=== PATIENT | female | born 1985 | race Caucasian/White ===

== ENCOUNTER 2021-10-02 02:31 | Emergency (ER) | payer OTHER, SELFPAY ==
[2021-10-02 02:42] VITALS: BP 116/70; PULSE 78; RESP 20; TEMP 36.6; O2SAT 100; BMI 19.1
--- NOTE | 2021-10-02 03:33 | ED.GENADULT ---
HPI - General Adult General Chief complaint: General Medical Stated complaint: Anxiety? Time Seen by Provider: 10/02/21 03:33 Source: patient and family Mode of arrival: ambulatory Limitations: no limitations History of Present Illness HPI narrative: Patient history of IVDA cocaine and heroin been using for some sometime comes here with multiple complaints saying that her blood is dark leg swollen be weird taste in the mouth feel like she was going to . Saturating 100% at room air supposed to see detox in the morning for intake at this time patient not able to tell what is her major reason to come to the hospital no fever no chills no cough Related Data Allergies Allergy/AdvReac Type Severity Reaction Status Date / Time No Known Allergies Allergy Verified 10/02/21 03:42 Review of Systems Review of Systems: Yes all other systems are reviewed and are negative [facility] Social History Social History Advance Directives: No Advance Directives Information Provided: No Physical Exam Vital Signs: Vital Signs: Last Vital Signs Temp 97.9 F 10/02/21 02:42 Pulse 78 10/02/21 02:42 Resp 20 10/02/21 02:42 BP 116/70 10/02/21 02:42 Pulse Ox 100 10/02/21 02:42 BMI result Body Mass Index 19.1 Appearance: Alert. Oriented X3. No acute distress. Frequently falling sleep Eyes: PERRLA, no pallor icterus ENT: Pharynx normal. Oral Mucosa moist triple facial lesions of cocaine use Neck: Normal inspection. Neck supple. CVS: Normal heart rate and rhythm. Pulses normal. Respiratory: No respiratory distress. Equal air entry bilateral, no wheezing/rales/rhonchi Abdomen: Soft and nontender. Skin: Skin warm and dry. Normal skin color. Normal skin turgor. Extremities: 1+ lower extremity edema. No calf tenderness IVDA track méndez in both upper extremities Neuro: Oriented X 3. Medical Decision Making MDM Narrative Medical decision making narrative: Patient's substance abuse multiple complaints left the ED without report of the urine states she will follow with PCP Lab Data Labs: Lab Results 10/02/21 10/02/21 10/02/21 Range/Units 04:03 Unknown Unknown Urine Color YELLOW Urine Appearance HAZY Urine pH 7.0 (5.0-8.0) Ur Specific [place] 1.020 (1.005-1.025) Urine Protein NEG (NEG-TRACE) MG/DL Urine Glucose (UA) NEG (NEG) MG/DL Urine Ketones NEG (NEG) MG/DL Urine Blood NEG (NEG) Urine Nitrite NEG (NEG) Ur Leukocyte Esterase 2+ H (NEG) Urine RBC 5-9 H (0) /HPF Urine WBC 30-49 H (0-4) /HPF Ur Squamous Epith Cells 1+ /LPF Urine Bacteria 2+ /LPF Urine Mucus 2+ /LPF Urine Test NEGATIVE (NEGATIVE) Urine Opiates Screen (Not Detect) Urine Fentanyl Screen (Not Detect) Ur Barbiturates Screen (Not Detect) Ur Phencyclidine Scrn (Not Detect) Ur Amphetamines Screen (Not Detect) U Benzodiazepines Scrn (Not Detect) Urine Cocaine Screen (Not Detect) U Marijuana (THC) Screen (Not Detect) COVID-19 (ARLIN) Negative (Negative) COVID-VelociData See Note 10/02/21 Range/Units Unknown Urine Color Urine Appearance Urine pH (5.0-8.0) Ur Specific [place] (1.005-1.025) Urine Protein (NEG-TRACE) MG/DL Urine Glucose (UA) (NEG) MG/DL Urine Ketones (NEG) MG/DL Urine Blood (NEG) Urine Nitrite (NEG) Ur Leukocyte Esterase (NEG) Urine RBC (0) /HPF Urine WBC (0-4) /HPF Ur Squamous Epith Cells /LPF Urine Bacteria /LPF Urine Mucus /LPF Urine Test (NEGATIVE) Urine Opiates Screen POSITIVE H (Not Detect) Urine Fentanyl Screen POSITIVE H (Not Detect) Ur Barbiturates Screen Not Detected (Not Detect) Ur Phencyclidine Scrn Not Detected (Not Detect) Ur Amphetamines Screen Not Detected (Not Detect) U Benzodiazepines Scrn Not Detected (Not Detect) Urine Cocaine Screen POSITIVE H (Not Detect) U Marijuana (THC) Screen Not Detected (Not Detect) COVID-19 (ARLIN) (Negative) COVID-VelociData Discharge Plan Discharge Clinical Impression: Polysubstance abuse Patient Disposition: Home, Self-Care Instructions: Polysubstance Abuse (ED) Additional Instructions: Follow up with detox in the morning as planned Interventions: ED Discharge Assessment Last Done: 10/02/21 05:17 Discharge Date/Time: 10/02/21 05:17
[2021-10-02 04:31] LABS: COVID-19 Test Negative (Negative); IDNOW Serial# 55D5AD1C
[2021-10-02 05:26] LABS: Appearance Urine HAZY; Color Urine YELLOW; Glucose Urine UA NEG (NEG); Leukocyte Esterase Urine 2+ (NEG); Nitrite Urine NEG (NEG); UACC Culture Trigger YES; Urine Blood NEG (NEG); Urine Ketones NEG (NEG); Urine Protein NEG (NEG-TRACE)
[2021-10-02 05:28] LABS: UPreg QC Valid YES; Urine Pregnancy NEGATIVE (NEGATIVE)
[2021-10-02 05:35] LABS: WBC Urine 30-49 /HPF (0-4)
[2021-10-02 05:36] LABS: Amphetamine Screen Urine Not Detected (Not Detect); Bacteria Urine 2+ /LPF; Barbiturates, Urine Not Detected (Not Detect); Benzodiazepines Screen Urine Not Detected (Not Detect); Cannabinoid Screen Urine Not Detected (Not Detect); Cocaine Screen Urine POSITIVE (Not Detect); Fentanyl, urine POSITIVE (Not Detect); Mucus Urine 2+ /LPF; Opiate Screen Urine POSITIVE (Not Detect); Phencyclidine Screen Urine Not Detected (Not Detect); Squamous Epithelial Cell Urine 1+ /LPF
== END 2021-10-02 05:17 | disposition home or self-care (01) ==
PROVIDERS: Emergency Provider Internal Medicine
DX: F19.10 Other psychoactive substance abuse, uncomplicated (principal); Z20.822 Contact with and (suspected) exposure to COVID-19; F11.10 Opioid abuse, uncomplicated; F14.10 Cocaine abuse, uncomplicated
CPT/HCPCS: 36415; 80307; 81001; 81025; 87086; 87635; 99283

== ENCOUNTER 2022-11-05 12:16 | Emergency (ER) | payer OTHER, SELFPAY ==
--- NOTE | ~2022-11-05 | XR_ITS ---
EXAMINATION: XR FINGER, LEFT CLINICAL INFORMATION: Glass in the left middle finger. COMPARISON: None TECHNIQUE: 3 views of the left middle finger. FINDINGS: No radiopaque foreign body. The bones and soft tissues are normal. No fracture. Alignment is anatomic. Joint spaces are maintained. XR/XR finger LT min 2V IMPRESSION: Normal finger radiographs.
[2022-11-05 12:39] VITALS: BP 110/65; PULSE 82; RESP 16; TEMP 36.7; O2SAT 97; BMI 20.1
--- NOTE | 2022-11-05 12:40 | ED_ITS ---
HPI - General Adult General Chief complaint: General Medical <DOC Carbajal - Last Filed: 11/05/22 12:45> Stated complaint: STD test/Multiple complaints <DOC Carbajal - Last Filed: 11/05/22 12:45> Time Seen by Provider: 11/05/22 14:07 <DOC Carbajal - Last Filed: 11/05/22 12:45> Source: patient <DOC Taveras Last Filed: 11/05/22 16:37> Mode of arrival: ambulatory <DOC Taveras Last Filed: 11/05/22 16:37> Limitations: no limitations <DOC Taveras Last Filed: 11/05/22 16:37> History of Present Illness HPI narrative: Patient is a 37 year old assigned female at with a history of opiate use disorder presenting to the emergency department today with multiple complaints including pain with intercourse over the last week, glass possibly stuck in her left middle finger over the last 3 days, and rash all over her arms and her hands and her legs over the last 3 months. Patient states that the rash has been intermittent to her arms, hands, and legs over the last 3 months. Patient states that 3 days ago she thought she got glass in her finger but isn't sure anymore. Patient states that she has been having pain with intercourse over the last week as well. Patient states that she does not want any help with her opiate use. Patient denies any dizziness, lightheadedness, abdominal pain, nausea, vomiting, fever, chills, blurry vision, double vision, loss of vision, chest pain, difficulty breathing, shortness of breath, back pain, night sweats, pain with urination, increased urinary frequency, increased urinary urgency, blood in her urine or stool, syncope or a near syncopal episode, recent trauma or falls, bowel incontinence, bladder incontinence, bowel retention, bladder retention, or any other complaints at this time. <DOC Taveras Last Filed: 11/05/22 16:37> Relieving factors: none <DOC Taveras Last Filed: 11/05/22 16:37> Exacerbating factors: none <DOC Taveras Last Filed: 11/05/22 16:37> Treatments prior to arrival: none <DCO Taveras Last Filed: 11/05/22 16:37> Related Data Home medications: Previous Rx's Medication Instructions Recorded doxycycline hyclate 100 mg tablet 100 mg PO BID 7 days #14 tabs 11/05/22 metronidazole 500 mg tablet 500 mg PO BID 14 days #28 tabs 11/05/22 <DOC Carbajal Last Filed: 11/05/22 12:45> Allergies/adverse reactions: Allergies Allergy/AdvReac Type Severity Reaction Status Date / Time No Known Allergies Allergy Verified 11/05/22 12:44 <DOC Carbajal Last Filed: 11/05/22 12:45> Review of Systems Constitutional: Constitutional: Reports no additional constitutional complaints, Denies chills, Denies fever(s) and Denies night sweats <DOC Taveras Last Filed: 11/05/22 16:37> Eyes: Eyes: Reports no additional eye complaints, Denies blurry vision, Denies change in vision, Denies diplopia, Denies eye discharge, Denies loss of vision and Denies eye pain <DOC Taveras Last Filed: 11/05/22 16:37> ENT: Denies dizziness <DOC Taveras Last Filed: 11/05/22 16:37> Cardiovascular: Cardiovascular: Reports no additional cardiovascular complaints, Denies chest pain, Denies lightheadedness, Denies Loss of Consciousness and Denies dyspnea <DOC Taveras Last Filed: 11/05/22 16:37> Respiratory: Respiratory: Reports no additional respiratory complaints and Denies dyspnea <DOC Taveras Last Filed: 11/05/22 16:37> Gastrointestinal: Gastrointestinal: Reports no additional gastrointestinal complaints, Denies abdominal pain, Denies melena, Denies hematochezia, Denies change in bowel habits and Denies change in stool character <DOC Taveras Last Filed: 11/05/22 16:37> Genitourinary: Genitourinary: Denies hematuria, Denies urinary frequency, Denies dysuria, Denies urinary incontinence, Denies urinary hesitancy and Denies urinary urgency <DOC Taveras Last Filed: 11/05/22 16:37> Comments: pain with intercourse <DOC Taveras - Last Filed: 11/05/22 16:37> Musculoskeletal: Musculoskeletal: Reports no additional musculoskeletal co mplaints, Denies numbness and Denies tingling <DOC Taveras - Last Filed: 11/05/22 16:37> Integumentary/Breasts: Skin/Breast: Reports rash <DOC Taveras - Last Filed: 11/05/22 16:37> Neurologic: Denies dizziness, Denies loss of vision, Denies numbness and Denies tingling <DOC Taveras - Last Filed: 11/05/22 16:37> Psychiatric: Psychiatric: Reports no additional psychiatric complaints <DOC Taveras - Last Filed: 11/05/22 16:37> Endocrine: Endocrine: Reports no additional endocrine complaints <DOC Taveras - Last Filed: 11/05/22 16:37> Hematologic/Lymphatic: Hematologic/Lymphatic: Reports no additional hematologic/lymphatic complaints <DOC Taveras - Last Filed: 11/05/22 16:37> Allergic/Immunologic: Allergic/Immunologic: Reports no additional allergic/immunologic complaints <DOC Taveras - Last Filed: 11/05/22 16:37> [facility] Past Medical History Attestation statement: The following information was validated with the patient. <DOC Taveras - Last Filed: 11/05/22 16:37> Source: old records reviewed and nursing notes reviewed <DOC Taveras - Last Filed: 11/05/22 16:37> Social History Social History: Social History Advance Directives: No Advance Directives Information Provided: Yes <DOC Carbajal - Last Filed: 11/05/22 12:45> Physical Exam ED Vital Signs: Vital Signs - 24 hr 11/05/22 12:39 Temperature 98.1 F Pulse Rate 82 Respiratory Rate 16 Blood Pressure 110/65 Pulse Oximetry 97 Oxygen Delivery Method Room Air BMI result Body Mass Index 20.1 <DOC Carbajal - Last Filed: 11/05/22 12:45> Vital Signs - 24 hr 11/05/22 12:39 Temperature 98.1 F Pulse Rate 82 Respiratory Rate 16 Blood Pressure 110/65 Pulse Oximetry 97 Oxygen Delivery Method Room Air BMI result Body Mass Index 20.1 <DOC Taveras - Last Filed: 11/05/22 16:37> Const General: cooperative, no acute distress, alert and awake <DOC Taveras - Last Filed: 11/05/22 16:37> Nutritional Appearance: well nourished <DOC Taveras - Last Filed: 11/05/22 16:37> Orientation/consciousness: patient oriented x3 <DOC Taveras - Last Filed: 11/05/22 16:37> Limitations: no limitations <DOC Taveras - Last Filed: 11/05/22 16:37> HENMT Head: Yes normal to inspection and Yes atraumatic <DOC Taveras - Last Filed: 11/05/22 16:37> Ears: hearing grossly normal bilaterally and external ears normal <DOC Taveras - Last Filed: 11/05/22 16:37> General nose exam: Normal external nose present, no nasal discharge noted and no epistaxis <DOC Taveras - Last Filed: 11/05/22 16:37> Face and sinus: Yes normal facial exam, No abrasion and No laceration <DOC Taveras - Last Filed: 11/05/22 16:37> Mouth: Normal oral and palatal mucosa present, no drooling and no muffled voice <DOC Taveras - Last Filed: 11/05/22 16:37> Eyes General: appearance normal, both eyes and all related structures <DOC Taveras - Last Filed: 11/05/22 16:37> Periorbital: periorbital findings normal <DOC Taveras - Last Filed: 11/05/22 16:37> Eyelids: Yes eyelids normal <DOC Taveras - Last Filed: 11/05/22 16:37> Conjunctivae: conjunctivae normal <DOC Taveras - Last Filed: 11/05/22 16:37> Pupils: Equal, round and reactive pupils present <DOC Taveras - Last Filed: 11/05/22 16:37> EOM: EOMs intact bilaterally <Ann Arreaga PA - Last Filed: 11/05/22 16:37> Neck Neck: Yes normal visual inspection, Yes full ROM and Yes no lymphadenopathy <Ann Arreaga PA - Last Filed: 11/05/22 16:37> Chest Chest palpation & inspection: normal inspection of the chest <Ann Arreaga PA - Last Filed: 11/05/22 16:37> Resp Effort & Inspection: normal respiratory effort and able to speak in complete sentences <Ann Arreaga PA - Last Filed: 11/05/22 16:37> Auscultation: clear to auscultation bilaterally <Ann Arreaga PA - Last Filed: 11/05/22 16:37> Cardio Rate: regular rate <Ann Arreaga PA - Last Filed: 11/05/22 16:37> Rhythm: regular rhythm <Ann Arreaga PA - Last Filed: 11/05/22 16:37> GI Inspection: Yes normal to inspection <Ann Arreaga PA - Last Filed: 11/05/22 16:37> Palpation (GI): Soft to palpation, not firm, nontender, no guarding and not rigid <Ann Arreaga PA - Last Filed: 11/05/22 16:37> Neuro General: patient oriented x3 and moves all extremities <Ann Arreaga PA - Last Filed: 11/05/22 16:37> Cranial nerves: Yes Equal, round and reactive pupils present <Ann Arreaga PA - Last Filed: 11/05/22 16:37> Cognition (Neuro): normal cognition <Ann Arreaga PA - Last Filed: 11/05/22 16:37> Motor exam (neuro): 5/5 motor strength present throughout <Ann Arreaga PA - Last Filed: 11/05/22 16:37> Sensory Exam: Normal double simultaneous stimulation for sensation <Ann Arreaga PA - Last Filed: 11/05/22 16:37> Coordination: [id number] test normal <Ann Arreaga PA - Last Filed: 11/05/22 16:37> Extrem General: Yes normal to inspection, Yes full ROM and Yes capillary refill normal <Ann Arreaga PA - Last Filed: 11/05/22 16:37> Psych Appearance: grossly normal <DOC Taveras - Last Filed: 11/05/22 16:37> Mental Status: mental status grossly normal <DOC Taveras - Last Filed: 11/05/22 16:37> Affect: normal affect <DOC Taveras Last Filed: 11/05/22 16:37> Attitude: cooperative <DOC Taveras Last Filed: 11/05/22 16:37> Thought process: Normal thought process present <DOC Taveras Last Filed: 11/05/22 16:37> Thought content: Normal thought content present <DOC Taveras Last Filed: 11/05/22 16:37> Insight: Good insight present (Psych) <DOC Taveras Last Filed: 11/05/22 16:37> Course Course Course Narrative: RME - 37 yo female presents to the ER for multiple complaints including possible STI, glass in finger, worms on her hands, face and extremities as well as a flare of my hepatitis C. Reports increased vaginal discharge and pain with sexual intercourse x1 week. Piece of glass in the middle finger on the left hand. Rash on face, hands and extremities x3 months and thinks its worms. No abdominal pain. Reports my skin and blood are weird and thinks its related to HCV. Admits to heroin and cocaine use. XR finger and STI swabs ordered. <DOC Carbajal - Last Filed: 11/05/22 12:45> Medications Administered Discontinued Medications Generic Name Dose Route Start Last Admin Trade Name Enzo PRN Reason Stop Dose Admin Ceftriaxone Sodium 500 mg/ 0 mg 11/05/22 14:28 11/05/22 14:39 Lidocaine HCl 1 ml IM 11/05/22 14:29 1 kit ONCE ONE Administration Doxycycline Monohydrate 100 mg 11/05/22 14:28 11/05/22 14:43 Doxycycline Monohydrate 100 Mg Capsule PO 11/05/22 14:29 100 mg ONCE ONE Administration Metronidazole 500 mg 11/05/22 14:28 11/05/22 14:43 Metronidazole 500 Mg Tablet PO 11/05/22 14:29 500 mg ONCE ONE Administration Naloxone HCl 4 mg 11/05/22 14:32 11/05/22 14:43 Naloxone Hcl Nasal Take Home 4 Mg [place] NOSTRILALT 11/05/22 14:33 4 mg ONCE ONE Administration <DOC Carbajal - Last Filed: 11/05/22 12:45> Medications Administered Discontinued Medications Generic Name Dose Route Start Last Admin Trade Name Enzo PRN Reason Stop Dose Admin Ceftriaxone Sodium 500 mg/ 0 mg 11/05/22 14:28 11/05/22 14:39 Lidocaine HCl 1 ml IM 11/05/22 14:29 1 kit ONCE ONE Administration Doxycycline Monohydrate 100 mg 11/05/22 14:28 11/05/22 14:43 Doxycycline Monohydrate 100 Mg Capsule PO 11/05/22 14:29 100 mg ONCE ONE Administration Metronidazole 500 mg 11/05/22 14:28 11/05/22 14:43 Metronidazole 500 Mg Tablet PO 11/05/22 14:29 500 mg ONCE ONE Administration Naloxone HCl 4 mg 11/05/22 14:32 11/05/22 14:43 Naloxone Hcl Nasal Take Home 4 Mg [place] NOSTRILALT 11/05/22 14:33 4 mg ONCE ONE Administration <DOC Taveras - Last Filed: 11/05/22 16:37> Medical Decision Making Medical Decision Making MDM Narrative: Patient is a 37 year old assigned female at with a history of opiate abuse presenting to the emergency department today with multiple complaints. Patient's physical exam was unremarkable. Patient's urine showed no acute process. Patient's left hand x-ray showed no acute process. I explained my physical exam findings as well as all test results to the patient. I answered all questions asked by the patient. Patient received STI exposure prophylaxis, take home narcan, and was offered recovery services which she ultimately declined. I stressed the importance of the patient taking her medication as prescribed. I stressed the importance of the patient following up with her primary care provider. I stressed the importance of the patient returning to the emergency department immediately if her symptoms were to worsen or if she were to develop any dizziness, shortness of breath, difficulty breathing, chest pain, blurry vision, loss of vision, nausea, vomiting, abdominal pain, fever, chills, back pain, or any other complaints. Patient verbalized agreement and understanding with this treatment plan and discharge. <DOC Taveras - Last Filed: 11/05/22 16:37> Differential Diagnosis Differential Diagnoses: The differential diagnosis associated with the presentation includes <DOC Taveras - Last Filed: 11/05/22 16:37> opiate use, STI exposure <DOC Taveras - Last Filed: 11/05/22 16:37> Lab Data MDM Lab Attestation statement: I reviewed the patient's lab results. <DOC Taveras - Last Filed: 11/05/22 16:37> Labs: Lab Results 11/05/22 11/05/22 11/05/22 Range/Units 13:59 13:59 13:59 Urine Color Yellow Urine Appearance Clear Urine pH 6.0 (5.0-9.0) Ur Specific [place] 1.025 (1.005-1.025) Urine Protein Negative (Neg-Trace) mg/dL Urine Glucose (UA) Negative (Negative) mg/dL Urine Ketones Negative (Negative) mg/dL Urine Blood Negative (Negative) Urine Nitrite Negative (Negative) Ur Leukocyte Esterase Small (1+) H (Negative) Urine RBC 0-2 (0-2) /HPF Urine WBC 6-10 H (0-5) /HPF Ur Squamous Epith Cells 11-20 (0-2) /HPF Urine Bacteria 1+ (None Seen) Hyaline Casts 0-2 (0-2) /LPF Urine Test NEGATIVE (NEGATIVE) Urine Opiates Screen POSITIVE H (Not Detect) Urine Fentanyl Screen POSITIVE H (Not Detect) Ur Barbiturates Screen Not Detected (Not Detect) Ur Phencyclidine Scrn Not Detected (Not Detect) Ur Amphetamines Screen Not Detected (Not Detect) U Benzodiazepines Scrn Not Detected (Not Detect) Urine Cocaine Screen POSITIVE H (Not Detect) U Marijuana (THC) Screen Not Detected (Not Detect) <DOC Carbajla - Last Filed: 11/05/22 12:45> Lab Results 11/05/22 11/05/22 11/05/22 Range/Units 13:59 13:59 13:59 Urine Color Yellow Urine Appearance Clear Urine pH 6.0 (5.0-9.0) Ur Specific [place] 1.025 (1.005-1.025) Urine Protein Negative (Neg-Trace) mg/dL Urine Glucose (UA) Negative (Negative) mg/dL Urine Ketones Negative (Negative) mg/dL Urine Blood Negative (Negative) Urine Nitrite Negative (Negative) Ur Leukocyte Esterase Small (1+) H (Negative) Urine RBC 0-2 (0-2) /HPF Urine WBC 6-10 H (0-5) /HPF Ur Squamous Epith Cells 11-20 (0-2) /HPF Urine Bacteria 1+ (None Seen) Hyaline Casts 0-2 (0-2) /LPF Urine Test NEGATIVE (NEGATIVE) Urine Opiates Screen POSITIVE H (Not Detect) Urine Fentanyl Screen POSITIVE H (Not Detect) Ur Barbiturates Screen Not Detected (Not Detect) Ur Phencyclidine Scrn Not Detected (Not Detect) Ur Amphetamines Screen Not Detected (Not Detect) U Benzodiazepines Scrn Not Detected (Not Detect) Urine Cocaine Screen POSITIVE H (Not Detect) U Marijuana (THC) Screen Not Detected (Not Detect) <DOC Taveras - Last Filed: 11/05/22 16:37> Radiology Impression Radiologist Impression: My interpretation is in agreement with the radiologist's impression of this imaging study. EXAMINATION: XR FINGER, LEFT CLINICAL INFORMATION: Glass in the left middle finger.? COMPARISON: None? TECHNIQUE: 3 views of the left middle finger. FINDINGS: No radiopaque foreign body. The bones and soft tissues are normal. No fracture. Alignment is anatomic. Joint spaces are maintained.? XR/XR finger LT min 2V IMPRESSION: Normal finger radiographs. Dictated By: Remy Yanez MD Signed By: Electronically signed by Remy Yanez MD 11/05/22 1411 <DOC Taveras - Last Filed: 11/05/22 16:37> Discharge Plan Discharge Clinical Impression: Sexually transmitted disease exposure <DOC Carbajal - Last Filed: 11/05/22 12:45> Patient Disposition: Home, Self-Care <DOC Carbajal - Last Filed: 11/05/22 12:45> Instructions: Sexually Transmitted Diseases (ED), Safe Sex Practices (ED), Female Condom Use (ED) <DOC Carbajal - Last Filed: 11/05/22 12:45> Additional Instructions: Follow up with your primary care provider. Return to the emergency department immediately if your symptoms worsen or if you develop any dizziness, shortness of breath, difficulty breathing, chest pain, blurry vision, loss of vision, nausea, vomiting, abdominal pain, fever, chills, back pain, or any other complaints. <DOC Carbajal Last Filed: 11/05/22 12:45> Prescriptions: New metronidazole 500 mg tablet 500 mg PO BID 14 Days Qty: 28 0RF doxycycline hyclate 100 mg tablet 100 mg PO BID 7 Days Qty: 14 0RF <DOC Carbajal - Last Filed: 11/05/22 12:45> Referrals: [facility] Family Medicine [Provider Group] (Call to establish and follow up with a primary care provider. If you already have a primary care provider, please follow up with them. ) [facility] Primary Care, [place] [Provider Group] (Call to establish and follow up with a primary care provider. If you already have a primary care provider, please follow up with them. ) [facility] Primary Care,[place] [Provider Group] (Call to establish and follow up with a primary care provider. If you already have a primary care provider, please follow up with them. ) <DOC Carbajal - Last Filed: 11/05/22 12:45> Interventions: ED Discharge Assessment Last Done: 11/05/22 15:31 <DOC Carbajal - Last Filed: 11/05/22 12:45> Discharge Date/Time: 11/05/22 15:37 <DOC Carbajal - Last Filed: 11/05/22 12:45> Print Language: Maltese <DOC Carbajal Last Filed: 11/05/22 12:45>
[2022-11-05 14:19] LABS: Appearance Urine Clear; Color Urine Yellow; Glucose Urine UA Negative (Negative); Leukocyte Esterase Urine Small (1+) (Negative); Nitrite Urine Negative (Negative); Specific Gravity - Urine 1.025 (1.005-1.025); UMIC TRIGGER UACC YES; Urine Blood Negative (Negative); Urine Ketones Negative (Negative); Urine Protein Negative (Neg-Trace)
[2022-11-05 14:21] LABS: UPreg QC Valid YES; Urine Pregnancy NEGATIVE (NEGATIVE)
[2022-11-05 14:25] LABS: Bacteria Urine 1+ (None Seen); Hyaline Casts Urine 0-2 /LPF (0-2); RBC Urine 0-2 /HPF (0-2); UACC Culture Trigger YES
[2022-11-05 14:31] LABS: Amphetamine Screen Urine Not Detected (Not Detect); Barbiturates, Urine Not Detected (Not Detect); Benzodiazepines Screen Urine Not Detected (Not Detect); Cannabinoid Screen Urine Not Detected (Not Detect); Cocaine Screen Urine POSITIVE (Not Detect); Fentanyl, urine POSITIVE (Not Detect); Opiate Screen Urine POSITIVE (Not Detect); Phencyclidine Screen Urine Not Detected (Not Detect)
[2022-11-05] MEDS: cefTRIAXone sodium 500 MG, Lidocaine HCl 1 % MPF 1 ML IM (14:39)
[2022-11-05] MEDS: metroNIDAZOLE 500 MG TABLET PO (14:43)
[2022-11-05] MEDS: Naloxone HCl Nasal TAKE HOME 4 MG SPRAY NOSTRILALT (14:43)
[2022-11-05] MEDS: Doxycycline Monohydrate 100 MG CAPSULE PO (14:43)
--- NOTE | 2022-11-05 14:50 | PC.NURSE ---
pt acting out of throughout entire visit, consistently falling asleep when this RN, provider and recovery team attempted speaking with her. Pt reports she last used yesterday night. DOC Juarez aware at this time
--- NOTE | 2022-11-05 15:11 | MHC.RECOVRN ---
Met with pt in [facility] after request from provider. Pt standing in room, snacking, falling asleep but wakes to voice. Pt reports using 5 bags heroin daily, IN, hx IV use. Pt reports having recently been linked to [facility], last dose approx 1 week ago, 55 mg. Pt reports she was staying in [place] and has been unable to get to the [facility]. Pt is now staying with a friend in [place] and plans to return to [facility] to reengage with treatment. Pt declines ATS at this time. Pt denies questions or concerns for t/w.
--- NOTE | 2022-11-05 15:30 | PC.NURSE ---
Pt requiring multiple re-directions during while being discharged. Pt is now awake and alert
== END 2022-11-05 15:37 | disposition home or self-care (01) ==
PROVIDERS: Physician Assistant; Emergency Provider Emergency Medicine
DX: Z20.2 Contact with and (suspected) exposure to infections with a predominantly sexual mode of transmission (principal); M79.5 Residual foreign body in soft tissue; F11.10 Opioid abuse, uncomplicated; B19.20 Unspecified viral hepatitis C without hepatic coma
CPT/HCPCS: 73140; 80307; 81001; 81025; 87086; 87147; 96372; 99282; 99284; J0696

== ENCOUNTER 2023-01-15 14:46 | Emergency (ER) | payer OTHER, SELFPAY ==
[2023-01-15 15:49] VITALS: BP 120/70; PULSE 69; RESP 18; TEMP 36.9; O2SAT 96; BMI 20.9
--- NOTE | 2023-01-15 16:00 | ED.GENADULT ---
HPI - General Adult General Chief complaint: General Medical <DOC Fonseca Last Filed: 01/15/23 16:02> Stated complaint: STD testing <DOC Fonseca Last Filed: 01/15/23 16:02> Time Seen by Provider: 01/15/23 17:19 <DOC Fonseca Last Filed: 01/15/23 16:02> Source: patient <DOC Sullivan Last Filed: 01/18/23 09:38> Mode of arrival: ambulatory <DOC Sullivan Last Filed: 01/18/23 09:38> History of Present Illness HPI narrative: 37-year-old female with a past medical history of IVDA, on methadone, hepatitis-C with undetectable levels, presenting to the ED complaining of urinary frequency, odorous white vaginal discharge, vaginal itching, dysuria, and suprapubic abdominal discomfort x 1 week. Reports she is sexually active with 1 partner, however is concern for STI. Reports partner is having symptoms as well. Denies fever, chills, nausea / vomiting, flank pain, vaginal bleeding <DOC Sullivan Last Filed: 01/18/23 09:38> Onset (ago): day(s) <DOC Sullivan Last Filed: 01/18/23 09:38> Related Data Home medications: Previous Rx's Medication Instructions Recorded doxycycline hyclate 100 mg tablet 100 mg PO BID 7 days #14 tabs 11/05/22 metronidazole 500 mg tablet 500 mg PO BID 14 days #28 tabs 11/05/22 doxycycline hyclate 100 mg tablet 100 mg PO BID 7 days #14 tabs 01/15/23 fluconazole 150 mg tablet 150 mg PO Q3D 1 day #1 tab 01/15/23 (Diflucan) metronidazole 500 mg tablet 500 mg PO BID 7 days #14 tabs 01/15/23 <DOC Fonseca Last Filed: 01/15/23 16:02> Allergies/adverse reactions: Allergies Allergy/AdvReac Type Severity Reaction Status Date / Time No Known Allergies Allergy Verified 01/15/23 15:53 <DOC Fonseca Last Filed: 01/15/23 16:02> Review of Systems Review of Systems: Constitutional: No Fever, No Chills, No Fatigue, No Malaise ENT/Mouth: No Hearing loss, No Ear Pain, No Nasal Congestion, No sore throat, No Rhinorrhea, No Swallowing Difficulty Eyes: No Eye Pain, No Swelling, No Redness, No Vision Changes Cardiovascular: No Chest Pain, No SOB, No Edema, No Palpitations Respiratory: No Cough, No Sputum, No Dyspnea Gastrointestinal: No Nausea, No Vomiting, No Diarrhea, No Constipation, + Abdominal pain Genitourinary: No irregular bleeding, + vaginal discharge, No Dysuria, + Urinary Frequency, No Hematuria, No Urinary Incontinence/retention, No Flank Pain Musculoskeletal: No joint pain, No Myalgias, No Joint Swelling Skin: No Skin Lesions, No rash Neuro: No Weakness, No Headache <DOC Sullivan - Last Filed: 01/18/23 09:38> Yes all other systems are reviewed and are negative <DOC Sullivan - Last Filed: 01/18/23 09:38> Constitutional: Constitutional: Reports as per HPI <DOC Sullivan - Last Filed: 01/18/23 09:38> [facility] Past Medical History Attestation statement: The following information was validated with the patient. <DOC Sullivan - Last Filed: 01/18/23 09:38> Social History Social History: Social History Advance Directives: No Advance Directives Information Provided: No <DOC Fonseca Last Filed: 01/15/23 16:02> Physical Exam ED Vital Signs: Vital Signs - 24 hr 01/15/23 15:49 Temperature 98.5 F Pulse Rate 69 Respiratory Rate 18 Blood Pressure 120/70 Pulse Oximetry 96 Oxygen Delivery Method Room Air BMI result Body Mass Index 20.9 <DOC Fonseca Last Filed: 01/15/23 16:02> Vital Signs - 24 hr 01/15/23 15:49 Temperature 98.5 F Pulse Rate 69 Respiratory Rate 18 Blood Pressure 120/70 Pulse Oximetry 96 Oxygen Delivery Method Room Air BMI result Body Mass Index 20.9 <DOC Sullivan - Last Filed: 01/18/23 09:38> Const General: cooperative, healthy appearing and no acute distress <DOC Sullivan - Last Filed: 01/18/23 09:38> Orientation/consciousness: patient oriented x3 <DOC Sullivan - Last Filed: 01/18/23 09:38> Limitations: no limitations <DOC Sullivan - Last Filed: 01/18/23 09:38> HENMT Head: Yes normal to inspection and Yes atraumatic <DOC Sullivan - Last Filed: 01/18/23 09:38> Ears: hearing grossly normal bilaterally <DOC Sullivan - Last Filed: 01/18/23 09:38> General nose exam: Normal external nose present <DOC Sullivan - Last Filed: 01/18/23 09:38> Face and sinus: Yes normal facial exam <DOC Sullivan - Last Filed: 01/18/23 09:38> Eyes General: appearance normal, both eyes and all related structures <DOC Sullivan - Last Filed: 01/18/23 09:38> EOM: EOMs intact bilaterally <DOC Sullivan - Last Filed: 01/18/23 09:38> Neck Neck: Yes normal visual inspection and Yes no meningeal signs <DOC Sullivan - Last Filed: 01/18/23 09:38> Resp Effort & Inspection: normal respiratory effort and no respiratory distress <DOC Sullivan - Last Filed: 01/18/23 09:38> Cardio Rate: regular rate <DOC Sullivan - Last Filed: 01/18/23 09:38> Heart sounds: S1 normal heart sound present and S2 normal heart sound present <DOC Sullivan - Last Filed: 01/18/23 09:38> GI Inspection: Yes normal to inspection <DOC Sullivan - Last Filed: 01/18/23 09:38> Palpation (GI): Soft to palpation, Tenderness to palpation present (GI) ( mild) suprapubicly; with no rebound tenderness, no guarding and not rigid <DOC Sullivan - Last Filed: 01/18/23 09:38> General: Yes no CVA tenderness <DOC Sullivan - Last Filed: 01/18/23 09:38> External Female Exam: normal external appearance <DOC Sullivan - Last Filed: 01/18/23 09:38> Speculum Exam - Vagina: abnormal vaginal discharge white, clear and hooper <DOC Sullivan - Last Filed: 01/18/23 09:38> Speculum Exam - Cervix: normal appearance of the cervix <DOC Sullivan - Last Filed: 01/18/23 09:38> Bimanual exam- vagina & uterus: normal bimanual exam and no cervical motion tenderness <DOC Sullivan - Last Filed: 01/18/23 09:38> Bimanual Exam- Adnexa, other: normal adnexae and no tenderness <DOC Sullivan - Last Filed: 01/18/23 09:38> Back/Spine/Pelvis Back: no CVA tenderness <DOC Sullivan - Last Filed: 01/18/23 09:38> Skin Rashes: no rashes <DOC Sullivan - Last Filed: 01/18/23 09:38> Wounds: no wounds <DOC Sullivan - Last Filed: 01/18/23 09:38> Neuro General: patient oriented x3, tone normal and no meningeal signs <DOC Sullivan - Last Filed: 01/18/23 09:38> Gait exam (Neuro): Normal gait present <DOC Sullivan - Last Filed: 01/18/23 09:38> Extrem General: Yes normal to inspection <DOC Sullivan - Last Filed: 01/18/23 09:38> Course Course Course Narrative: This is an RME: Additional HPI, ROS, PE not included below will be deferred to primary provider. 37-year-old female presents with foul-smelling discharge from the vagina that is yellow/white, patient states this started 2 weeks ago, she would like STD treatment and testing. Reports she does not get normal periods, unclear if she is at this time. Reports urinary frequency and would like testing for UTI. Denies fevers, chills. Physical exam benign plan gonorrhea chlamydia testing, UTI testing and urine <DOC Fonseca Last Filed: 01/15/23 16:02> This is an RME: Additional HPI, ROS, PE not included below will be deferred to primary provider. 37-year-old female presents with foul-smelling discharge from the vagina that is yellow/white, patient states this started 2 weeks ago, she would like STD treatment and testing. Reports she does not get normal periods, unclear if she is at this time. Reports urinary frequency and would like testing for UTI. Denies fevers, chills. Physical exam benign plan gonorrhea chlamydia testing, UTI testing and urine -1900-- UA not infected. Recommended patient go to [facility] for further testing Results discussed with patient including worrisome signs and symptoms and strict return precautions, and when to return to the emergency department. They verbalized understanding and feel safe for discharge at this time. <DOC Sullivan - Last Filed: 01/18/23 09:38> Reevaluation(s) Reevaluation #1: 01/18/23--0937--patient's cultures were positive for Trichomonas. Patient was appropriately treated, listed number without answer, no voicemail box set up <DOC Sullivan - Last Filed: 01/18/23 09:38> Medications Administered Discontinued Medications Generic Name Dose Route Start Last Admin Trade Name Kennedyq PRN Reason Stop Dose Admin Ceftriaxone Sodium 500 mg/ 0 mg 01/15/23 16:03 01/15/23 17:22 Lidocaine HCl 1 ml IM 01/15/23 16:04 1 kit ONCE ONE Administration Doxycycline Monohydrate 100 mg 01/15/23 16:02 01/15/23 17:23 Doxycycline Monohydrate 100 Mg Capsule PO 01/15/23 16:03 100 mg ONCE ONE Administration Fluconazole 150 mg 01/15/23 18:36 01/15/23 18:54 Fluconazole 150 Mg Tablet PO 01/15/23 18:37 150 mg ONCE ONE Administration Metronidazole 500 mg 01/15/23 16:02 01/15/23 17:23 Metronidazole 500 Mg Tablet PO 01/15/23 16:03 500 mg ONCE ONE Administration <DOC Fonseca - Last Filed: 01/15/23 16:02> Medications Administered Discontinued Medications Generic Name Dose Route Start Last Admin Trade Name Enzo PRN Reason Stop Dose Admin Ceftriaxone Sodium 500 mg/ 0 mg 01/15/23 16:03 01/15/23 17:22 Lidocaine HCl 1 ml IM 01/15/23 16:04 1 kit ONCE ONE Administration Doxycycline Monohydrate 100 mg 01/15/23 16:02 01/15/23 17:23 Doxycycline Monohydrate 100 Mg Capsule PO 01/15/23 16:03 100 mg ONCE ONE Administration Fluconazole 150 mg 01/15/23 18:36 01/15/23 18:54 Fluconazole 150 Mg Tablet PO 01/15/23 18:37 150 mg ONCE ONE Administration Metronidazole 500 mg 01/15/23 16:02 01/15/23 17:23 Metronidazole 500 Mg Tablet PO 01/15/23 16:03 500 mg ONCE ONE Administration <DOC Sullivan - Last Filed: 01/18/23 09:38> Medical Decision Making Medical Decision Making MDM Narrative: 37-year-old female with a past medical history of IVDA, on methadone, hepatitis-C with undetectable levels, presenting to the ED complaining of urinary frequency, odorous white vaginal discharge, vaginal itching, dysuria, and suprapubic abdominal discomfort x 1 week. on exam vital signs stable, NAD, nontoxic appearing, abdomen soft with mild suprapubic tenderness, no rebound or guarding, no CVAT. On pelvic exam white/hooper vaginal discharge noted. No appreciable lesions. No CMT or adnexal tenderness. Concern for STI vs UTI. Lower suspicion for ovarian cyst/ torsion, TOA, appendicitis/diverticulitis plan: STI testing, UA patient agreeable to empiric treatment with IM Rocephin, p.o. doxycycline, metronidazole, and Diflucan Please refer to course for remaining clinical decision making, interpretation of labs/imaging results, and discussions with consultants and/or family members. <DOC Sullivan - Last Filed: 01/18/23 09:38> Differential Diagnosis Differential Diagnoses: The differential diagnosis associated with the presentation includes <DOC Sullivan - Last Filed: 01/18/23 09:38> As above <DOC Sullivan - Last Filed: 01/18/23 09:38> Admission/Observation Consideration of admission/observation: Escalation of care including admission/observation considered <DOC Sullivan - Last Filed: 01/18/23 09:38> Lab Data MDM Lab Attestation statement: I reviewed the patient's lab results. <DOC Sullivan - Last Filed: 01/18/23 09:38> Labs: Lab Results 01/15/23 01/15/23 01/15/23 Range/Units 18:09 18:09 18:09 Urine Color Yellow Urine Appearance Clear Urine pH 7.5 (5.0-9.0) Ur Specific Raymond 1.015 (1.005-1.025) Urine Protein Negative (Neg-Trace) mg/dL Urine Glucose (UA) Negative (Negative) mg/dL Urine Ketones Negative (Negative) mg/dL Urine Blood Negative (Negative) Urine Nitrite Negative (Negative) Ur Leukocyte Esterase Moderate (2+) H (Negative) Urine RBC 0-2 (0-2) /HPF Urine WBC 0-5 (0-5) /HPF Ur Squamous Epith Cells 0-2 (0-2) /HPF Urine Bacteria 1+ (None Seen) Hyaline Casts 0-2 (0-2) /LPF Urine Test NEGATIVE (NEGATIVE) Hallie species DNA (Negative) Chlam trachomat DNA PCR NOT DETECTED (Not Detect.) Gardnerella DNA Probe (Negative) N.gonorrhoeae DNA (PCR) NOT DETECTED (Not Detect.) Trichomonas DNA Probe (Negative) 01/15/23 01/15/23 Range/Units 18:37 18:48 Urine Color Urine Appearance Urine pH (5.0-9.0) Ur Specific Raymond (1.005-1.025) Urine Protein (Neg-Trace) mg/dL Urine Glucose (UA) (Negative) mg/dL Urine Ketones (Negative) mg/dL Urine Blood (Negative) Urine Nitrite (Negative) Ur Leukocyte Esterase (Negative) Urine RBC (0-2) /HPF Urine WBC (0-5) /HPF Ur Squamous Epith Cells (0-2) /HPF Urine Bacteria (None Seen) Hyaline Casts (0-2) /LPF Urine Test (NEGATIVE) Hallie species DNA Negative (Negative) Chlam trachomat DNA PCR Cancelled (Not Detect.) Gardnerella DNA Probe Negative (Negative) N.gonorrhoeae DNA (PCR) Cancelled (Not Detect.) Trichomonas DNA Probe Positive A (Negative) <DOC Fonseca - Last Filed: 01/15/23 16:02> Lab Results 01/15/23 01/15/23 01/15/23 Range/Units 18:09 18:09 18:09 Urine Color Yellow Urine Appearance Clear Urine pH 7.5 (5.0-9.0) Ur Specific Raymond 1.015 (1.005-1.025) Urine Protein Negative (Neg-Trace) mg/dL Urine Glucose (UA) Negative (Negative) mg/dL Urine Ketones Negative (Negative) mg/dL Urine Blood Negative (Negative) Urine Nitrite Negative (Negative) Ur Leukocyte Esterase Moderate (2+) H (Negative) Urine RBC 0-2 (0-2) /HPF Urine WBC 0-5 (0-5) /HPF Ur Squamous Epith Cells 0-2 (0-2) /HPF Urine Bacteria 1+ (None Seen) Hyaline Casts 0-2 (0-2) /LPF Urine Test NEGATIVE (NEGATIVE) Hallie species DNA (Negative) Chlam trachomat DNA PCR NOT DETECTED (Not Detect.) Gardnerella DNA Probe (Negative) N.gonorrhoeae DNA (PCR) NOT DETECTED (Not Detect.) Trichomonas DNA Probe (Negative) 01/15/23 01/15/23 Range/Units 18:37 18:48 Urine Color Urine Appearance Urine pH (5.0-9.0) Ur Specific Raymond (1.005-1.025) Urine Protein (Neg-Trace) mg/dL Urine Glucose (UA) (Negative) mg/dL Urine Ketones (Negative) mg/dL Urine Blood (Negative) Urine Nitrite (Negative) Ur Leukocyte Esterase (Negative) Urine RBC (0-2) /HPF Urine WBC (0-5) /HPF Ur Squamous Epith Cells (0-2) /HPF Urine Bacteria (None Seen) Hyaline Casts (0-2) /LPF Urine Test (NEGATIVE) Hallie species DNA Negative (Negative) Chlam trachomat DNA PCR Cancelled (Not Detect.) Gardnerella DNA Probe Negative (Negative) N.gonorrhoeae DNA (PCR) Cancelled (Not Detect.) Trichomonas DNA Probe Positive A (Negative) <DOC Sullivan - Last Filed: 01/18/23 09:38> Radiology Impression Discussion of test interpretation with radiology: I have reviewed the radiologist's reading. <DOC Sullivan - Last Filed: 01/18/23 09:38> External Record Review External record reviewed: Inpatient record, Office record, Outpatient record, Prior outpatient labs, Prior outpatient radiology, Primary care record and Outside ED record <DOC Sullivan - Last Filed: 01/18/23 09:38> Discharge Plan Discharge Clinical Impression: Vaginal discharge, Sexually transmitted disease <DOC Fonseca - Last Filed: 01/15/23 16:02> Patient Disposition: Home, Self-Care <DOC Fonseca - Last Filed: 01/15/23 16:02> Instructions: Sexually Transmitted Diseases (ED), Vaginal Discharge (ED) <DOC Fonseca - Last Filed: 01/15/23 16:02> Additional Instructions: we tested you for sexually transmitted diseases today in the ED. please continue prescribed medications to completion. Avoid any sexual contact until you know the results of her cultures please follow-up with [facility] for further STI testing if symptoms persist or worsen you develop vaginal bleeding, abdominal pain, fever, back pain return to the emergency department <DOC Fonseca - Last Filed: 01/15/23 16:02> Prescriptions: New fluconazole [Diflucan] 150 mg tablet 150 mg PO Q3D 1 Days Qty: 1 0RF Rx Instructions: take in 3 days if symptoms are still present, you received 1st dose in the emergency department metronidazole 500 mg tablet 500 mg PO BID 7 Days Qty: 14 0RF doxycycline hyclate 100 mg tablet 100 mg PO BID 7 Days Qty: 14 0RF No Action metronidazole 500 mg tablet 500 mg PO BID 14 Days Qty: 28 0RF doxycycline hyclate 100 mg tablet 100 mg PO BID 7 Days Qty: 14 0RF <DOC Fonseca - Last Filed: 01/15/23 16:02> Referrals: [facility] [Provider Group] Physician,None [Primary Care Provider] - <DOC Fonseca - Last Filed: 01/15/23 16:02> Interventions: ED Discharge Assessment Last Done: 01/15/23 19:19 <DOC Fonseca - Last Filed: 01/15/23 16:02> Discharge Date/Time: 01/15/23 19:20 <DOC Fonseca - Last Filed: 01/15/23 16:02>
[2023-01-15] MEDS: cefTRIAXone sodium 500 MG, Lidocaine HCl 1 % MPF 1 ML IM (17:22)
[2023-01-15] MEDS: metroNIDAZOLE 500 MG TABLET PO (17:23)
[2023-01-15] MEDS: Doxycycline Monohydrate 100 MG CAPSULE PO (17:23)
[2023-01-15 18:20] LABS: Appearance Urine Clear; Color Urine Yellow; Glucose Urine UA Negative (Negative); Leukocyte Esterase Urine Moderate (2+) (Negative); Nitrite Urine Negative (Negative); PH 7.5 (5.0-9.0); Specific Gravity - Urine 1.015 (1.005-1.025); UMIC TRIGGER UACC YES; Urine Blood Negative (Negative); Urine Ketones Negative (Negative); Urine Protein Negative (Neg-Trace)
[2023-01-15 18:46] LABS: UPreg QC Valid YES; Urine Pregnancy NEGATIVE (NEGATIVE)
[2023-01-15 18:50] LABS: Bacteria Urine 1+ (None Seen); Hyaline Casts Urine 0-2 /LPF (0-2); RBC Urine 0-2 /HPF (0-2); Squamous Epithelial Cell Urine 0-2 /HPF (0-2); WBC Urine 0-5 /HPF (0-5)
[2023-01-15] MEDS: Fluconazole 150 MG TABLET PO (18:54)
[2023-01-16 13:02] LABS: CT PCR NOT DETECTED (Not Detect.); NG PCR NOT DETECTED (Not Detect.)
[2023-01-16 13:06] LABS: BV Int Neg Control Negative (Negative); BV Int Pos Control Positive (Positive)
== END 2023-01-15 19:20 | disposition home or self-care (01) ==
PROVIDERS: Physician Assistant; Emergency Provider Student in an Organized Health Care Education/Training Program
DX: N89.8 Other specified noninflammatory disorders of vagina (principal); Z20.2 Contact with and (suspected) exposure to infections with a predominantly sexual mode of transmission; F11.20 Opioid dependence, uncomplicated
CPT/HCPCS: 0353U; 81001; 81025; 87480; 87510; 87660; 96372; 99282; 99284; J0696

== ENCOUNTER 2023-04-14 12:40 | Emergency (ER) | payer OTHER, SELFPAY ==
[2023-04-14] VITALS (7 sets, daily range): BP systolic 96–130; BP diastolic 60–81; PULSE 60–90; RESP 14–18; TEMP 36.7–37.3; O2SAT 96–98; BMI 23.5
--- NOTE | 2023-04-14 13:06 | PC.NURSE ---
Patient arrived from [facility] stating that she has been having sob for the last 3 hours. has been coughing for the last few days and when she coughs a lot her chest hurts. States has not injected any dope yet today and is having sweats. Reports takes methadone daily but missed her dose today. No sob observed at this time. 96% on RA. States that she does have needles in her bag. Initially stating they could be locked up until discharge but changed her mind stating that does not want anyone going through her belongings. VSs, nsr on monitor
--- NOTE | 2023-04-14 13:10 | PC.NURSE ---
Patient nodding off in between triage questions, stating she just feels tired.
--- NOTE | 2023-04-14 13:38 | ED.GENADULT ---
HPI - General Adult General Chief complaint: General Medical Stated complaint: SOB Time Seen by Provider: 04/14/23 13:38 Source: patient, RN notes reviewed and old records reviewed Mode of arrival: ambulatory History of Present Illness HPI narrative: 37-year-old female with a past medical history of IVDA, on methadone, hepatitis C, presenting to the ED complaining of productive cough and SOB x5 days. Patient also reports chest discomfort. States I think I have MRSA with diffuse scab/pus drainage to bilateral upper and lower extremities. Patient admits to heroin and ETOH use. Admits last used at 03:00. Denies fever/chills, abdominal pain, nausea/vomiting. Onset (ago): day(s) Related Data Previous Rx's Medication Instructions Recorded doxycycline hyclate 100 mg tablet 100 mg PO BID 7 days #14 tabs 11/05/22 metronidazole 500 mg tablet 500 mg PO BID 14 days #28 tabs 11/05/22 doxycycline hyclate 100 mg tablet 100 mg PO BID 7 days #14 tabs 01/15/23 fluconazole 150 mg tablet 150 mg PO Q3D 1 day #1 tab 01/15/23 (Diflucan) metronidazole 500 mg tablet 500 mg PO BID 7 days #14 tabs 01/15/23 cephalexin 500 mg capsule 500 mg PO QID 7 days #28 caps 04/14/23 doxycycline hyclate 100 mg tablet 100 mg PO BID 7 days #14 tabs 04/14/23 Allergies Allergy/AdvReac Type Severity Reaction Status Date / Time No Known Allergies Allergy Verified 01/15/23 15:53 Review of Systems Review of Systems: Constitutional: No Fever, No Chills, No Fatigue, No Malaise ENT/Mouth: No Ear Pain, No sore throat, No Rhinorrhea, No Swallowing Difficulty Eyes: No Eye Pain, No Swelling, No Redness, No Vision Changes Cardiovascular: + Chest Pain, + SOB, No Orthopnea, No Edema, No Palpitations Respiratory: + Cough, + Sputum, No Wheezing, No Dyspnea Gastrointestinal: No Nausea, No Vomiting, No Diarrhea, No Constipation, No Abdominal pain Genitourinary: No Dysuria, No Urinary Frequency Musculoskeletal: No joint pain, No Myalgias, No Joint Swelling Skin: +Skin Lesions, No rash Neuro: No Weakness, No Headache Psych: No Anxiety/Panic, No Depression, No SI/HI/AH/VH, + Social Issues Yes all other systems are reviewed and are negative Constitutional: Constitutional: Reports as per [facility] Past Medical History Attestation statement: The following information was validated with the patient. Source: old records reviewed Social History Social History Alcohol intake: current Alcohol intake frequency: a few times a month Smoked in Last 30 Days: Yes Use of substances other than those prescribed or required for medical reasons: Yes Substance Use Type: Crack/Cocaine and Heroin Substance Use Frequency: Chronic Longstanding Any prior treatment program specific to substance use: Yes Advance Directives: No Advance Directives Information Provided: Yes Patient : No Physical Exam ED Vital Signs: Vital Signs - 24 hr 04/14/23 12:50 04/14/23 12:58 04/14/23 13:03 Temperature 99.1 F 98.8 F 98.8 F Pulse Rate 83 86 82 Respiratory Rate 14 18 18 Blood Pressure 116/64 116/64 116/64 Pulse Oximetry 96 97 98 Oxygen Delivery Method Room Air Room Air Room Air 04/14/23 14:33 04/14/23 16:00 Temperature Pulse Rate 75 63 Respiratory Rate 18 18 Blood Pressure 108/66 Pulse Oximetry 97 97 Oxygen Delivery Method Room Air Room Air BMI result Body Mass Index 23.5 Const Other: Lethargic, appears under the influence, disheveled General: cooperative, healthy appearing and lethargic Orientation/consciousness: patient oriented x3 and lethargic HENNV Head: Yes normal to inspection and Yes atraumatic Ears: hearing grossly normal bilaterally General nose exam: Normal external nose present Face and sinus: Yes normal facial exam Eyes General: appearance normal, both eyes and all related structures Pupils: Equal, round and reactive pupils present EOM: EOMs intact bilaterally Neck Neck: Yes normal visual inspection and Yes no meningeal signs Resp Effort & Inspection: normal respiratory effort and no respiratory distress Auscultation: clear to auscultation bilaterally, no crackles and no wheezes Cardio Rate: regular rate Heart sounds: S1 normal heart sound present and S2 normal heart sound present GI Inspection: Yes normal to inspection Palpation (GI): Soft to palpation, nontender, no guarding and not rigid Back/Spine/Pelvis Other: No midline cervical/thoracic/lumbar spinous tenderness/step-off or deformity Skin Other: + diffuse skin picking/scabs/wounds to bilateral upper and lower extremities. +RLE wounds with surrounding erythema. No warmth, no fluctuance or crepitus. Not circumferential Rashes: no rashes Neuro General: patient oriented x3, tone normal and no meningeal signs Cranial nerves: Yes Equal, round and reactive pupils present Extrem General: Yes normal to inspection Course Course Course Narrative: -1554--no leukocytosis. Labs otherwise reassuring. Lactic acid negative. Ethanol negative -[facility] currently down, receiving paper readings NAD -1600--on re-evaluation patient sleeping, arousable to loud voice, maintaining airway. Physician observation initiated as patient needs more time to be clinically sober/evaluated by recovery team -1647--ED care transferred to [facility] and pending clinical sobriety, metabolize to freedom. Recovery left resources at bedside Medications Administered Discontinued Medications Generic Name Dose Route Start Last Admin Trade Name Freq PRN Reason Stop Dose Admin Cephalexin HCl 500 mg 04/14/23 14:57 04/14/23 15:06 Cephalexin 500 Mg Capsule PO 04/14/23 14:58 500 mg ONCE ONE Administration Doxycycline Monohydrate 100 mg 04/14/23 14:57 04/14/23 15:06 Doxycycline Monohydrate 100 Mg Capsule PO 04/14/23 14:58 100 mg ONCE ONE Administration Medical Decision Making Medical Decision Making [facility] Narrative: 37-year-old female with a past medical history of IVDA, on methadone, hepatitis C, presenting to the ED complaining of productive cough and SOB x5 days & diffuse scab/pus drainage to bilateral upper and lower extremities. On exam vital signs stable, NAD, nontoxic appearing, appears under the influence, lethargic however easily arousable, lungs CTA, diffuse skin scabs/open wounds with RLE erythema/overlying cellulitis. No appreciable abscess. Concern for polysubstance abuse vs viral syndrome vs atypical ACS vs ?Pneumonia. Concern for cellulitis/MRSA vs non drainable abscess. No evidence of necrosis, low suspicion for necrotizing fasciitis, or PE Plan: EKG, labs, lactic/blood cultures, CXR, COVID/flu testing, empiric antibiotics for cellulitis, CARE consult Please refer to course for remaining clinical decision making, interpretation of labs/imaging results, and discussions with consultants and/or family members. Differential Diagnosis Differential Diagnoses: The differential diagnosis associated with the presentation includes As above Admission/Observation Consideration of admission/observation: Escalation of care including admission/observation considered Consult Healthcare Provider Management of the patient was discussed with: Behavioral Health Provider Lab Data MDM Lab Attestation statement: I reviewed the patient's lab results. 04/14/23 14:23 04/14/23 14:24 Labs: Lab Results 04/14/23 04/14/23 04/14/23 Range/Units 14:23 14:23 14:24 WBC 10.8 (4.8-10.8) X10*3/uL RBC 4.33 (4.20-5.50) X10*6/uL Hgb 12.9 (12.0-16.0) g/dl Hct 38.7 (37.0-47.0) % MCV 89.4 (80.0-98.0) fL MCH 29.8 (27.0-33.0) pg MCHC 33.3 (31.0-35.0) g/dl RDW 13.2 (11.0-16.0) % Plt Count 246 (160-400) X10*3/uL MPV 8.7 L (9.4-12.3) fL Immature Gran % (Auto) 0.3 (0.0-0.4) % Neut % (Auto) 81.0 H (45-73) % Lymph % (Auto) 14.8 L (20-40) % [place] % (Auto) 2.9 (2-11) % Eos % (Auto) 0.5 (0-4) % Baso % (Auto) 0.5 (0-2) % Lymph # (Auto) 1.6 (1.2-4.9) X10*3/uL [place] # (Auto) 0.3 (0.1-1.2) X10*3/uL Eos # (Auto) 0.1 (0.0-0.4) X10*3/uL Baso # (Auto) 0.1 (0.0-0.2) X10*3/uL Abs Immat Gran (auto) 0.03 (0.00-0.03) X10*3/uL Absolute Neuts (auto) 8.7 H (2.0-8.3) x10*3/uL Absolute Nucleated RBC 0.000 (0.0-0.012) X10*3/uL Nucleated RBC % (auto) 0.0 (0.0-0.2) /100WBC Sodium 137 (135-145) mmol/L Potassium 3.9 (3.3-5.1) mmol/L Chloride 100 (96-108) mmol/L Carbon Dioxide 27 (22-29) mmol/L Anion Gap 14 (12-20) BUN 9 (9-16) mg/dL Creatinine 0.78 (0.5-1.4) mg/dL Estim Creat Clear Calc 83.6 Estimated GFR > 60 Random Glucose 116 H (60-115) mg/dL Lactic Acid 0.8 (0.5-2.0) mmol/L Calcium 9.2 (8.4-10.2) mg/dL Total Bilirubin 0.6 (0.0-1.0) mg/dL Direct Bilirubin 0.2 (0.0-0.5) mg/dL AST 26 (5-31) U/L ALT 13 (0-31) U/L Alkaline Phosphatase 97 (39-117) U/L Troponin I High Sens (<3.5-17.0) ng/L Total Protein 7.4 (6.5-8.0) g/dL Albumin 3.8 (3.5-5.0) g/dL Ethyl Alcohol mg/dL COVID-19 (ARLIN) (Negative) COVID-19 Clin Com Influenza Type A (ESTELA) (Negative) Influenza Type B (ESTELA) (Negative) Influenza A & B Note 04/14/23 04/14/23 04/14/23 Range/Units 14:25 14:25 14:28 WBC (4.8-10.8) X10*3/uL RBC (4.20-5.50) X10*6/uL Hgb (12.0-16.0) g/dl Hct (37.0-47.0) % MCV (80.0-98.0) fL MCH (27.0-33.0) pg MCHC (31.0-35.0) g/dl RDW (11.0-16.0) % Plt Count (160-400) X10*3/uL MPV (9.4-12.3) fL Immature Gran % (Auto) (0.0-0.4) % Neut % (Auto) (45-73) % Lymph % (Auto) (20-40) % [place] % (Auto) (2-11) % Eos % (Auto) (0-4) % Baso % (Auto) (0-2) % Lymph # (Auto) (1.2-4.9) X10*3/uL [place] # (Auto) (0.1-1.2) X10*3/uL Eos # (Auto) (0.0-0.4) X10*3/uL Baso # (Auto) (0.0-0.2) X10*3/uL Abs Immat Gran (auto) (0.00-0.03) X10*3/uL Absolute Neuts (auto) (2.0-8.3) x10*3/uL Absolute Nucleated RBC (0.0-0.012) X10*3/uL Nucleated RBC % (auto) (0.0-0.2) /100WBC Sodium (135-145) mmol/L Potassium (3.3-5.1) mmol/L Chloride (96-108) mmol/L Carbon Dioxide (22-29) mmol/L Anion Gap (12-20) BUN (9-16) mg/dL Creatinine (0.5-1.4) mg/dL Estim Creat Clear Calc Estimated GFR Random Glucose (60-115) mg/dL Lactic Acid (0.5-2.0) mmol/L Calcium (8.4-10.2) mg/dL Total Bilirubin (0.0-1.0) mg/dL Direct Bilirubin (0.0-0.5) mg/dL AST (5-31) U/L ALT (0-31) U/L Alkaline Phosphatase (39-117) U/L Troponin I High Sens < 2.7 (<3.5-17.0) ng/L Total Protein (6.5-8.0) g/dL Albumin (3.5-5.0) g/dL Ethyl Alcohol < 10 mg/dL COVID-19 (ARLIN) Negative (Negative) COVID-19 Clin Com See Note Influenza Type A (ESTELA) (Negative) Influenza Type B (ESTELA) (Negative) Influenza A & B Note 04/14/23 Range/Units 14:28 WBC (4.8-10.8) X10*3/uL RBC (4.20-5.50) X10*6/uL Hgb (12.0-16.0) g/dl Hct (37.0-47.0) % MCV (80.0-98.0) fL MCH (27.0-33.0) pg MCHC (31.0-35.0) g/dl RDW (11.0-16.0) % Plt Count (160-400) X10*3/uL MPV (9.4-12.3) fL Immature Gran % (Auto) (0.0-0.4) % Neut % (Auto) (45-73) % Lymph % (Auto) (20-40) % [place] % (Auto) (2-11) % Eos % (Auto) (0-4) % Baso % (Auto) (0-2) % Lymph # (Auto) (1.2-4.9) X10*3/uL [place] # (Auto) (0.1-1.2) X10*3/uL Eos # (Auto) (0.0-0.4) X10*3/uL Baso # (Auto) (0.0-0.2) X10*3/uL Abs Immat Gran (auto) (0.00-0.03) X10*3/uL Absolute Neuts (auto) (2.0-8.3) x10*3/uL Absolute Nucleated RBC (0.0-0.012) X10*3/uL Nucleated RBC % (auto) (0.0-0.2) /100WBC Sodium (135-145) mmol/L Potassium (3.3-5.1) mmol/L Chloride (96-108) mmol/L Carbon Dioxide (22-29) mmol/L Anion Gap (12-20) BUN (9-16) mg/dL Creatinine (0.5-1.4) mg/dL Estim Creat Clear Calc Estimated GFR Random Glucose (60-115) mg/dL Lactic Acid (0.5-2.0) mmol/L Calcium (8.4-10.2) mg/dL Total Bilirubin (0.0-1.0) mg/dL Direct Bilirubin (0.0-0.5) mg/dL AST (5-31) U/L ALT (0-31) U/L Alkaline Phosphatase (39-117) U/L Troponin I High Sens (<3.5-17.0) ng/L Total Protein (6.5-8.0) g/dL Albumin (3.5-5.0) g/dL Ethyl Alcohol mg/dL COVID-19 (ARLIN) (Negative) COVID-19 Clin Com Influenza Type A (ESTELA) Negative (Negative) Influenza Type B (ESTELA) Negative (Negative) Influenza A & B Note See Note Radiology Impression Discussion of test interpretation with radiology: I have reviewed the radiologist's reading. External Record Review External record reviewed: Inpatient record, Office record, Outpatient record, Prior outpatient labs, Prior outpatient radiology, Primary care record and Outside ED record Tests considered The following testing was considered but not selected: As above Discharge Plan Discharge Clinical Impression: Cellulitis, Polysubstance abuse, SOB (shortness of breath), Chest pain Patient Disposition: Still a Patient Instructions: Chest Pain (ED), Cellulitis (DC), Polysubstance Abuse (ED) Additional Instructions: Your blood work and chest x-ray were reassuring. Please avoid alcohol and drug use this can kill you You have cellulitis of her leg, doxycycline and Keflex are antibiotics please take as prescribed If areas worsening you constant worsening shortness of breath/chest pain, or fever return to the ED Prescriptions: New cephalexin 500 mg capsule 500 mg PO QID 7 Days Qty: 28 0RF doxycycline hyclate 100 mg tablet 100 mg PO BID 7 Days Qty: 14 0RF No Action metronidazole 500 mg tablet 500 mg PO BID 14 Days Qty: 28 0RF doxycycline hyclate 100 mg tablet 100 mg PO BID 7 Days Qty: 14 0RF fluconazole [Diflucan] 150 mg tablet 150 mg PO Q3D 1 Days Qty: 1 0RF Rx Instructions: take in 3 days if symptoms are still present, you received 1st dose in the emergency department metronidazole 500 mg tablet 500 mg PO BID 7 Days Qty: 14 0RF doxycycline hyclate 100 mg tablet 100 mg PO BID 7 Days Qty: 14 0RF Referrals: [facility] [Provider Group] [facility] [Outside]
--- NOTE | 2023-04-14 14:34 | PC.NURSE ---
With patient permission belongings locked up by security
--- NOTE | 2023-04-14 14:57 | PC.NURSE ---
Alert but continues to nod off during conversation. labs drawn per order, patient provided with food and fluids.
--- NOTE | 2023-04-14 16:26 | PC.NURSE ---
Patient continues to state she is tired. Requested and provided with food and fluids. NSR on monitor, vss.
--- NOTE | 2023-04-14 16:40 | MHC.RECOVRN ---
This keno writer/runner attempted to meet with patient, patient not able to answer this writers questions, somnolent. ED Provider aware. Addiction/Recovery supports left at bedside.
--- NOTE | 2023-04-14 18:15 | PC.NURSE ---
Alert and oriented. denies pain at this time. States feeling better but still tired.
== END 2023-04-14 20:50 | disposition home or self-care (01) ==
PROVIDERS: Emergency Provider Emergency Medicine Emergency Medical Services
DX: R06.02 Shortness of breath (principal); R07.9 Chest pain, unspecified; L03.119 Cellulitis of unspecified part of limb; F19.10 Other psychoactive substance abuse, uncomplicated; B19.20 Unspecified viral hepatitis C without hepatic coma; Z20.822 Contact with and (suspected) exposure to COVID-19
CPT/HCPCS: 71045; 80048; 80076; 80307; 83605; 84484; 85025; 87040; 87502; 87635; 93005; 99284